=== PATIENT | female | born 1980 | race Caucasian/White ===

== ENCOUNTER 2016-10-08 09:16 | Day surgery (SDC) | payer BC ==
--- NOTE | ~2016-10-08 | OP ---
Record Of Operation [facility] [address] [place] [place]. [address] NAME: YUNIER CUELLO : 80 STATUS : [facility]#: [id number] AGE: 36 ADM/REG DATE : 10/08/16 MR#: [id number] REPORT SERV DATE: 10/08/16 DICTATED BY: LYDIA JUAREZ DATE: 10/08/16 REPORT STATUS : Draft TRANSCRIBED BY: MODL DATE: 10/08/16 DATE OF PROCEDURE: 10/08/2016 PREOPERATIVE DIAGNOSIS: Epilepsy. POSTOP DIAGNOSIS: Epilepsy. OPERATION: VNS generator change and programming. SUMMARY: After adequate general anesthesia, prep and drape, incision was made directly over the old incision, carried down through the skin and subcutaneous tissue. The old generator was dissected free carefully from surrounding tissue. The leads appeared intact. The generator was disconnected and the new generator was then connected and interrogated successfully to 1 milliamp and impedance was okay. This was then placed into the pocket, which had been enlarged with a little use of the cautery, and placed into the pouch and interrogated again successfully to 1 milliamp and impedance was okay. It was then programmed to OC 2.5, SF 220, pulse width 250 on 30, off 1.8. 2.75, pulse width 250 on 60, auto stimulation left off. After adequate irrigation, good hemostasis was obtained. The generator was sutured to the anterior chest wall with a 2-0 Prolene suture. Subcutaneous tissue and skin closed in routine fashion after injection of 0.5% Marcaine . The patient tolerated the procedure well and taken to recovery room in satisfactory condition. JOHN/RUDY Lydia Juarez M.D. / [id number] CC: Lydia Juarez M.D.
[~2016-10-08 09:16] MED LIST: DEPAKOTEER PO; KEPPRA500 PO; KLONO1 PO; LAMICTAL10 PO; NORCO1 TAB PO; VIMPAT200 MG PO
== END 2016-10-08 13:31 | disposition home or self-care (01) ==
LOC: SDC 09:16
PROVIDERS: Specialist
PROC: 0JH60BZ Insertion of Single Array Stimulator Generator into Chest Subcutaneous Tissue and Fascia, Open Approach (ICD-10-PCS; 2016-10-08)
PROC: 0JPT0MZ Removal of Stimulator Generator from Trunk Subcutaneous Tissue and Fascia, Open Approach (ICD-10-PCS; principal; 2016-10-08 10:15)
DX: Z46.2 Encounter for fitting and adjustment of other devices related to nervous system and special senses (principal); G40.909 Epilepsy, unspecified, not intractable, without status epilepticus; F17.210 Nicotine dependence, cigarettes, uncomplicated; M54.9 Dorsalgia, unspecified; Z88.2 Allergy status to sulfonamides; Z88.0 Allergy status to penicillin; Z88.5 Allergy status to narcotic agent; Z88.1 Allergy status to other antibiotic agents; Z79.899 Other long term (current) drug therapy
CPT/HCPCS: 88300; C1767; J1170; J2250; J2405; J2550; J3010; J3370